=== PATIENT | male | born 1975 | race Caucasian/White ===

== ENCOUNTER 2018-12-15 07:57 | Emergency (ER) | payer MEDICAID ==
[~2018-12-15] VITALS: Ht 165.1 cm; Wt 90.0 kg
[~2018-12-15 07:57] MED LIST: BUTA1CAP38 PO; NO MEDS
[2018-12-15 07:59] VITALS: RESP 18; Ht 165.1 cm; Wt 90.0 kg
[2018-12-15] MEDS ORDERED: ONDANSETRON 4 MG INJ IV STA (08:25)
[2018-12-15] MEDS ORDERED: SOD CHLORIDE 0.9% 1,000 ML IV STA (08:25)
[2018-12-15] MEDS ORDERED: KETOROLAC 30 MG INJ IV STA (08:25)
[2018-12-15 10:43] VITALS: BP 135/83; PULSE 73
== END 2018-12-15 10:42 | disposition home or self-care (01) ==
LOC: FTE 07:57
DX: R51 Headache (principal); R11.2 Nausea with vomiting, unspecified
CPT/HCPCS: 96361; 96374; 96375; J1885; J2405; J7030; Z7502